=== PATIENT | female | born 1940 | race Caucasian/White ===

== ENCOUNTER → 2018-02-18 | Outpatient (CLI) | payer MEDICARE, BC ==
--- NOTE | 2018-02-18 15:57 | RADIOLOGY IMAGING REPORT ---
FACILITY: [facility] - [place], [place] PATIENT NAME: Naida Bass : 1940 MR: [id number] V: [id number] EXAM DATE: ORDERING PHYSICIAN: MARIEL BENITEZ TECHNOLOGIST: Location: [facility] Patient: Naida Bass : 1940 Visit/Account:[id number] Date of Sevice: 02/18/2018 KIDNEYS EXAMINATION: Renal ultrasound. History: Acute kidney injury, benign essential hypertension COMPARISON STUDIES: FINDINGS: Kidneys: Right kidney- 8.9 x 4.1 x 4.3 cm Left kidney- 10.1 x 4.5 x 5.2 cm Uniform and symmetric blood flow in each kidney by Doppler ultrasound. No perinephric fluid collecti ons are identified Hydronephrosis: none Resistive index on the right 0.69 on the left 0.65 Bladder: Prevoid volume 140 mL. Post void volume 31 mL. Bilateral ureteral jets are present Abdominal aorta and IVC: Aorta and IVC are patent by Doppler ultrasound. IMPRESSION: 31 mL post void bladder residual Unremarkable sonographic appearance to the kidneys Report Dictated By: Mariana Granados MD at 02/18/2018 3:49 PM Report E-Signed By: Mariana Granados MD at 02/18/2018 3:52 PM WSN:[email or web address]
--- NOTE | 2018-02-20 14:43 | RADIOLOGY IMAGING REPORT ---
FACILITY: [facility] - [place] PATIENT NAME: NENA MOREJON : [id number] MR: [id number] V: [id number] EXAM DATE: [id number] ORDERING PHYSICIAN: MARIEL BENITEZ TECHNOLOGIST: Radha Momin EXAMINATION:TWO-DIMENSIONAL ECHOCARDIOGRAPH REASON:HTN 2D Measurements (normal values in centimeters) LV endLV endRV endVent.LV PostAorticLeftPercent DiastolicSystolicDiastolicSeptumWallRootAtriumShortening (3.5-5.7)(0.9-2.6)(0.6-1.1)(0.6-1.1)(2.0-3.7)(1.9-4.0)(25-35%) [id number]% STROKE VOLUME: 62ml ESTIMATED EJECTION FRACTION:70% PARASTERNAL LONG AXIS: Overall left ventricular systolic function appears to be normal. Right ventricle also appears to contract normally & the TAPSE is measured at 2.5. Left atrium appears to be mildly enlarged. The other chamber sizes are normal. Color examination of the valves reveals a trace of mitral insufficiency & a trace of tricuspid insufficiency. Aortic valve appears to open normally with minimal aortic sclerosis. PARASTERNAL SHORT AXIS: Overall left ventricular systolic function again appears to be normal. No specific wall motion abnormalities are noted. Aortic valve was not well seen but probably is trileaflet in configuration. Color examination of the valves in this view was unremarkable. APICAL FOUR AND TWO CHAMBER: Normal left ventricular ejection fraction. Right ventricle also appears to contract normally. Aortic valve area & mitral valve area both measure within normal ranges at 2.5 & 3.0cm2 respectively. The tricuspid regurgitation Vmax measured 2.63m/sec. Left atrial & right atrial volumes are measured within normal ranges at 25 & 18ml/m2. Trace of mitral & tricuspid insufficiency is noted. SUBCOSTAL VIEW: No pericardial effusion was noted. No atrioseptal or ventriculoseptal defects were appreciated. Doppler examination of the mitral valve in diastole does reveal a normal pattern. There is some decreased velocities with Valsalva & the medial & lateral E prime velocities are 7.7 & 9.4cm/sec respectively. IVC is normal in size. OVERALL IMPRESSION: 1. Normal left ventricular ejection fraction of 70% with a mild to borderline moderate decrease in diastolic function. 2. Chamber sizes are normal but the left atrium measures enlarged but the left atrial volume is normal in range suggesting nl. La size. 3. A trace of mitral & tricuspid insufficiency with estimated right ventricular systolic pressures within normal range at 36mm Hg. No other valvular abnormalities were noted. 4. There is a prominent pericardial fat pad present. Dictated by: Don Del Cid M.D. on 02/19/2018 at 14:05 Transcribed by: PETAR on 02/20/2018 at 9:55 Approved by: Don Del Cid M.D. on 02/20/2018 at 14:41 [facility]
== END ==
LOC: US 03:19
PROVIDERS: ATTEND Internal Medicine Nephrology
DX: M25.471 Effusion, right ankle (principal); M25.472 Effusion, left ankle; N17.9 Acute kidney failure, unspecified; I10 Essential (primary) hypertension; I34.0 Nonrheumatic mitral (valve) insufficiency; I36.1 Nonrheumatic tricuspid (valve) insufficiency
CPT/HCPCS: 76705; 93306

== ENCOUNTER → 2018-04-08 | Outpatient (CLI) | payer MEDICARE, BC ==
--- NOTE | 2018-04-08 17:10 | RADIOLOGY IMAGING REPORT ---
FACILITY: [facility] PATIENT NAME: Naida Bass : 1940 MR: [id number] V: [id number] EXAM DATE: ORDERING PHYSICIAN: EMILY SANTIAGO TECHNOLOGIST: Location: [facility] Patient: Naida Bass : 1940 Visit/Account:[id number] Date of Sevice: 04/08/2018 THYROID HISTORY: Thyroid nodules COMPARISON: January 22, 2017 FINDINGS: SIZE: Right lobe: 5.5 x 1.4 x 1.4 cm Left lobe: 5.9 x 2.3 x 3.4 cm Isthmus: 3.4 mm PARENCHYMA: Mildly heterogeneous NODULES: Right lobe: * None discrete. Left lobe: * There is a 4.8 x 2.1 x 3.3 cm complex hypervascular solid and partially cystic nodule in the mid t o inferior left lobe this mass previously measured 2.5 x 3.4 x 4.6 cm. This mass is relatively uncha nged when measured in the same tissue planes Isthmus: * None discrete. VASCULARITY: Within normal limits. ADDITIONAL FINDINGS: None. 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 When measured in the same tissue planes this is remain relatively stable. By history this was previously biopsied in November 2015 although those results are not currently available to me at this time REFERENCE: 2015 [place] [employer] Management Guidelines for Adult Patients with Thyroid Nodules and D ifferentiated Thyroid Cancer: The [place] [employer] Guidelines Task Force on Thyroid Nodul es and Differentiated Thyroid Cancer. SONOGRAPHIC PATTERNS: * Benign: Purely cystic nodules (no solid component); estimated risk of malignancy <1 percent; no bi opsy recommended. * Very Low Suspicion: Spongiform or partially cystic nodules without any of the sonographic features described in low, intermediate, or high suspicion patterns; estimated risk of malignancy <3 percent; consider FNA at > 2 cm (Observation without FNA is also a reasonable option). * Low Suspicion: Isoechoic or hyperechoic solid nodule, or partially cystic nodule with eccentric so lid areas, without microcalcification, irregular margin or ETE (extra-thyroidal extension), or taller than wide shape; estimated risk of malignancy 5-10 percent; recommend FNA at >1.5 cm. * Intermediate Suspicion: Hypoechoic solid nodule with smooth margins without microcalcifications, E TE (extra-thyroidal extension), or taller than wide shape; estimated risk of malignancy 10-20 percent ; recommend FNA at > 1 cm. * High Suspicion: Solid hypoechoic nodule or solid hypoechoic component of a partially cystic nodule with one or more of the following features: irregular margins (infiltrative, microlobulated), microc alcifications, taller than wide shape, rim calcifications with small extrusive soft tissue component, evidence of ETE (extra-thyroidal extension); estimated risk of malignancy >70-90 percent; recommend FNA at > 1 cm. NOTES: * Although a sonographically suspicious subcentimeter thyroid nodule without evidence of extrathyroi ashley extension or sonographically suspicious lymph nodes may be observed with close sonographic follow -up rather than pursuing immediate FNA, patient age and preference may modify decision-making. A > 50% interval increase in nodule volume and/or development of new suspicious sonographic features are felt to be a valid reasons for potential re-aspiration of a nodule previously shown to have benig n FNA cytology. Report Dictated By: Mariana Granados MD at 04/08/2018 5:02 PM Report E-Signed By: Mariana Granados MD at 04/08/2018 5:07 PM WSN:[email or web address]
== END ==
LOC: US 00:35
PROVIDERS: ATTEND Nurse Practitioner Family
DX: E04.1 Nontoxic single thyroid nodule (principal)
CPT/HCPCS: 76536

== ENCOUNTER → 2018-07-22 | Outpatient (CLI) | payer MEDICARE, BC ==
[~2018-07-22] MED LIST: REGADENOSON 0.4 MG/5 ML SYR ONE
== END ==
LOC: NUC 04:21
PROVIDERS: ATTEND Nurse Practitioner Family
DX: Z02.9 Encounter for administrative examinations, unspecified (principal)
CPT/HCPCS: J2785

== ENCOUNTER → 2018-08-12 | Outpatient (CLI) | payer MEDICARE, BC ==
--- NOTE | 2018-08-12 17:50 | RADIOLOGY IMAGING REPORT ---
FACILITY: [facility] PATIENT NAME: Naida Bass : 1940 MR: [id number] V: [id number] EXAM DATE: ORDERING PHYSICIAN: EMILY SANTIAGO TECHNOLOGIST: Location: [facility] [place] Patient: Naida Bass : 1940 Visit/Account:[id number] Date of Sevice: 08/12/2018 EXAMINATION: Single isotope SPECT imaging with regadenoson infusion and gated SPECT imaging. DATE OF EXAMINATION: 08/12/2018. DATE OF INTERPRETATION: 08/12/2018. REQUESTING PHYSICIAN: EMILY SANTIAGO. INDICATION: The patient is a 78-year-old female evaluated for preoperative evaluation for cataract s urgery.. PROCEDURE: After informed consent the patient received an intravenous injection of 12.7 mCi of Tc-99 m sestamibi followed at an appropriate time interval by rest imaging. The patient then subsequently received an intravenous infusion of 0.4 mg of regadenoson per protocol without complication. Resting heart rate was 62 bpm with a peak heart rate of 86 bpm. Blood pressure at rest was 129 / 71 and fol lowing infusion was 136 / 60. Baseline EKG demonstrates normal sinus rhythm, low voltage, no ST abno rmalities. There were no EKG changes of ischemia following infusion. Symptoms were nonspecific. Th e patient then received an intravenous injection of 30.0 mCi of Tc-99m sestamibi followed by stress i maging. RAW DATA: Examination of the summed raw data revealed a good quality study. MYOCARDIAL PERFUSION: The tomographic images demonstrate no evidence of infarct or ischemia. GATED IMAGES: The gated images demonstrate hyperdynamic wall motion, ejection fraction 81%. IMPRESSION: 1. Good quality study 2. Normal myocardial perfusion scan. 3. Hyperdynamic LV systolic function; LVEF 81%. 4. Based on the results of this exam, the patient appears to be at low risk for future cardiovascular events but remains intermediate risk due to inability to exercise. Report Dictated By: Hardy Crocker at 08/12/2018 5:40 PM Report E-Signed By: Hardy Crocker at 08/12/2018 5:46 PM WSN:[email or web address]
== END ==
LOC: NUC 00:48
PROVIDERS: ATTEND Nurse Practitioner Family
DX: I70.8 Atherosclerosis of other arteries (principal); I13.0 Hypertensive heart and chronic kidney disease with heart failure and stage 1 through stage 4 chronic kidney disease, or unspecified chronic kidney disease; R06.00 Dyspnea, unspecified
CPT/HCPCS: 78452; 93017; A9500; J2785

== ENCOUNTER → 2018-10-07 | Outpatient (CLI) | payer MEDICARE, BC ==
--- NOTE | 2018-10-07 18:15 | RADIOLOGY IMAGING REPORT ---
FACILITY: [facility] - [place] PATIENT NAME: Naida Bass : 1940 MR: [id number] V: [id number] EXAM DATE: ORDERING PHYSICIAN: EMILY SANTIAGO TECHNOLOGIST: Location: [facility] [place] Patient: Naida Bass : 1940 Visit/Account:[id number] Date of Sevice: 10/07/2018 THYROID HISTORY: There loss, hot flashes, follow-up COMPARISON: April 08, 2018 FINDINGS: SIZE: Right lobe: 4.3 x 1.3 x 1.4 cm Left lobe: 6 x 2.8 x 3.4 cm Isthmus: 4 mm PARENCHYMA: Homogeneous. NODULES: Right lobe: * None discrete. Left lobe: * There is a large heterogeneous complex mass encompassing much of the left lobe of the thyroid glan d measuring 4.8 x 2.6 x 3.2 cm. This has increased from 4.8 x 2.1 x 3.3 cm. Correlation with previo us biopsy results needed Isthmus: * None discrete. VASCULARITY: Within normal limits. ADDITIONAL FINDINGS: None. IMPRESSION: There is a large heterogeneous complex mass encompassing much of the left lobe of the thyroid gland w hich is slightly increased in size when compared the prior study. Correlation with previous biopsy r esults needed REFERENCE: 2015 [place] [employer] Management Guidelines for Adult Patients with Thyroid Nodules and D ifferentiated Thyroid Cancer: The [place] [employer] Guidelines Task Force on Thyroid Nodul es and Differentiated Thyroid Cancer. SONOGRAPHIC PATTERNS: * Benign: Purely cystic nodules (no solid component); estimated risk of malignancy <1 percent; no bi opsy recommended. * Very Low Suspicion: Spongiform or partially cystic nodules without any of the sonographic features described in low, intermediate, or high suspicion patterns; estimated risk of malignancy <3 percent; consider FNA at > 2 cm (Observation without FNA is also a reasonable option). * Low Suspicion: Isoechoic or hyperechoic solid nodule, or partially cystic nodule with eccentric so lid areas, without microcalcification, irregular margin or ETE (extra-thyroidal extension), or taller than wide shape; estimated risk of malignancy 5-10 percent; recommend FNA at >1.5 cm. * Intermediate Suspicion: Hypoechoic solid nodule with smooth margins without microcalcifications, E TE (extra-thyroidal extension), or taller than wide shape; estimated risk of malignancy 10-20 percent ; recommend FNA at > 1 cm. * High Suspicion: Solid hypoechoic nodule or solid hypoechoic component of a partially cystic nodule with one or more of the following features: irregular margins (infiltrative, microlobulated), microc alcifications, taller than wide shape, rim calcifications with small extrusive soft tissue component, evidence of ETE (extra-thyroidal extension); estimated risk of malignancy >70-90 percent; recommend FNA at > 1 cm. NOTES: * Although a sonographically suspicious subcentimeter thyroid nodule without evidence of extrathyroi ashley extension or sonographically suspicious lymph nodes may be observed with close sonographic follow -up rather than pursuing immediate FNA, patient age and preference may modify decision-making. A > 50% interval increase in nodule volume and/or development of new suspicious sonographic features are felt to be a valid reasons for potential re-aspiration of a nodule previously shown to have benig n FNA cytology. Report Dictated By: Mariana Granados MD at 10/07/2018 6:09 PM Report E-Signed By: Mariana Granados MD at 10/07/2018 6:12 PM WSN:[email or web address]
== END ==
LOC: US 04:36
PROVIDERS: ATTEND Nurse Practitioner Family
DX: E03.9 Hypothyroidism, unspecified (principal); L65.9 Nonscarring hair loss, unspecified; R21 Rash and other nonspecific skin eruption; E04.0 Nontoxic diffuse goiter; R53.83 Other fatigue; N95.1 Menopausal and female climacteric states
CPT/HCPCS: 76536

== ENCOUNTER → 2019-01-27 | Outpatient (CLI) | payer MEDICARE, BC ==
[~2019-01-27] MED LIST changes: +AMLO-125 PO; +ASPI81TA94 PO; +ATOR40TA24 PO; +BROM5DRO2; +BUPR-149 PO; +CALC600T63 PO; +CAND32TA; +CHOL10005 PO; +EZET10TA41 PO; +FURO-45 PO; +LOR5/325 PO; +METH-543 PO; +OMEG-11 PO; +PRED20TA6 PO; -REGADENOSON 0.4 MG/5 ML SYR ONE; +SERT-181 PO
--- NOTE | 2019-01-27 17:54 | RADIOLOGY IMAGING REPORT ---
FACILITY: [facility] PATIENT NAME: Naida Bass : 1940 MR: [id number] V: [id number] EXAM DATE: ORDERING PHYSICIAN: EMILY SANTIAGO TECHNOLOGIST: Location: [facility] Patient: Naida Bass : 1940 Visit/Account:[id number] Date of Sevice: 01/27/2019 CT CHEST W/O CONTRAST History: Source of breath, leg swelling, atelectasis TECHNIQUE: Contiguous axial images were performed through the chest to the level of the adrenal gla nds. No IV contrast was administered. Coronal and sagittal reformatting was also performed.Dose Lower ing Technique One of the following dose optimization techniques was utilized in the performance of this exam: Autom ated exposure control; adjustment of the mA and/or kV according to the patient's size; or use of an i terative reconstruction technique. Specific details can be referenced in the facility's radiology C T exam operational policy. COMPARISON STUDIES: October 12, 2015. Lungs / Pleura: There is a 3 mm intrafissural nodule in the minor fissure on the right and appears unchanged. There is a Small amount linear scarring along the inferior lingula is again noted Mediastinum/nodes: There is a large complex partially calcified left thyroid nodule measuring 3.8 x 2.7 x 3.9 cm is incompletely imaged. No pathologic-appearing hilar or mediastinal adenopathy is seen Heart and vessels: There mild coronary artery calcifications Musculoskeletal / Body wall: . There are extensive spondylotic changes of the thoracic spine are m ost prominent at T10-11 Upper abdomen: Visualized abdominal viscera negative. IMPRESSION: Small amount of linear scarring along the inferior lingula appears stable There is a large complex partially calcified thyroid nodule which is incompletely imaged. 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
== END ==
LOC: CT 06:56
PROVIDERS: ATTEND Nurse Practitioner Family
DX: I25.10 Atherosclerotic heart disease of native coronary artery without angina pectoris (principal); E04.2 Nontoxic multinodular goiter; M47.894 Other spondylosis, thoracic region
CPT/HCPCS: 71250

== ENCOUNTER → 2019-02-11 | Outpatient (CLI) | payer MEDICARE, BC | LOC: RESP 02:04 | PROVIDERS: ATTEND Nurse Practitioner Family | DX: R06.02 Shortness of breath (principal) | CPT/HCPCS: 94060; 94726; 94729 ==